=== PATIENT | female | born 1980 | race Caucasian/White ===

== ENCOUNTER 2017-04-24 16:28 | Emergency (ER) | payer BC ==
[~2017-04-24] VITALS: Ht 167.6 cm; Wt 68.3 kg
[2017-04-24 16:48] VITALS: BP 162/99
== END 2017-04-24 17:23 | disposition left against medical advice (07) ==
LOC: EME 16:28
DX: M79.602 Pain in left arm (principal); R06.02 Shortness of breath; Z53.21 Procedure and treatment not carried out due to patient leaving prior to being seen by health care provider
CPT/HCPCS: 80048; 84484; 85027; 93005

== ENCOUNTER 2017-07-06 11:17 | Emergency (ER) | payer BC ==
[~2017-07-06] VITALS: Ht 175.3 cm; Wt 66.0 kg
[2017-07-06] MEDS ORDERED: ERYTHROMYC1 APPLICAT RIGHT EYE (13:43)
[2017-07-06] MEDS ORDERED: PROPARACAINE HC15 ML BOTH EYES (13:43)
[2017-07-06 13:58] VITALS: BP 150/106
== END 2017-07-06 14:03 | disposition home or self-care (01) ==
LOC: EME 11:17
DX: S05.01XA Injury of conjunctiva and corneal abrasion without foreign body, right eye, initial encounter (principal)
CPT/HCPCS: 99281; 99284